=== PATIENT | male | born 1990 | race African-American/Black ===

== ENCOUNTER 2020-04-13 10:13 | Emergency (ER) | payer OTHER ==
[2020-04-13 10:19] VITALS: BMI 21.8
[2020-04-13] MEDS ORDERED: ONDANSETRON 4 MG/2 ML VIAL IVPUSH ONE (11:03)
[2020-04-13] MEDS ORDERED: SODIUM CHLORIDE 1,000 ML IV STA ×2 (11:03→12:57)
[2020-04-13] MEDS ORDERED: MAG HYDROX/AL HYDROX/SIMETH 30 ML UNIT-DOSE CUP PO ONE (11:04)
[2020-04-13] MEDS ORDERED: LIDOCAINE VISCOUS 2% ORAL/TOP 20 ML UNIT-DOSE CUP PO ONE (11:04)
--- NOTE | 2020-04-13 11:09 | PDOC ---
History of Present Illness - General Chief Complaint: Pain Stated Complaint: ABD PAIN Time Seen by Provider: 04/13/20 10:42 History Source: Patient Exam Limitations: No Limitations - History of Present Illness Travel History: No Initial Comments: 04/13/20 11:06 HISTORY OF PRESENT ILLNESS: 29-year-old male denies medical history presents emergency department for evaluation of upper abdominal burning and nausea status post heavy alcohol consumption yesterday in the evening. Patient reports awoke this morning with a burning sensation in the left upper abdomen and mild nausea. Patient reports the pain feels "like I really need to eat but I do not feel hungry." Patient reports consuming multiple bottles of hard liquor with 4 5 friends. No recent travel or sick contacts. PAST MEDICAL HISTORY: Denies past medical history SURGICAL HISTORY: Denies ALLERGIES: No known drug allergies REVIEW OF SYSTEMS General/Constitutional: Denies fever or chills. Denies weakness, weight change. HEENT: Denies change in vision. Denies ear pain or discharge. Denies sore throat. Cardiovascular: Denies chest pain or shortness of breath. Respiratory: Denies cough, wheezing, or hemoptysis. Gastrointestinal: See HPI Genitourinary: Denies dysuria, frequency, or change in urination. Musculoskeletal: Denies joint or muscle swelling or pain. Denies neck or back pa in. Skin and breasts: Denies rash or easy bruising. Neurologic: Denies headache, vertigo, loss of consciousness, or loss of sensation. Psychiatric: Denies depression or anxiety. Endocrine: Denies increased thirst. Denies abnormal weight change. Hematologic/Lymphatic: Denies anemia, easy bleeding, or history of blood clots. Allergic/Immunologic: Denies hives or skin allergy. Denies latex allergy. PHYSICAL EXAM General Appearance: Well-appearing, appropriately dressed. No apparent distress, no intoxication. Respiratory/Chest: Lungs CTAB. No shortness of breath, chest tenderness, respiratory distress, accessory muscle use. No crackles, rales, rhonchi, stridor, wheezing, dullness Cardiovascular: RRR. S1, S2. No JVD, murmur, bradycardia, tachycardia. Vascular Pulses: Dorsalis-Pedis (R): 2+, Dorsalis-Pedis (L): 2+ Gastrointestinal/Abdominal: Normal bowel sounds. Abdomen soft, non-distended. No tenderness or rebound tenderness. No organomegaly, pulsatile mass, guarding, hernia, hepatomegaly, splenomegaly. Lymphatic: No adenopathy, tenderness. Musculoskeletal/Extremities: Normal inspection. FROM of all extremities, normal capillary refill. Pelvis Stable. No CVA tenderness. No tenderness to extremities, pedal edema, swelling, erythema or deformity. Past History - Medical History Allergies/Adverse Reactions: Allergies Allergy/AdvReac Type Severity Reaction Status Date / Time No Known Allergies Allergy Verified 04/13/20 10:15 - Psycho-Social/Smoking History Smoking History: Never smoked - Substance Abuse Hx (Audit-C & DAST Scrn) How often the patient has a drink containing alcohol: 4 0r more times/wk Number of drinks the patient has on a typical day: 10 or more How often the patient has six or more drinks on one occasion: Daily or almost daily Score: In Men: 4 or > Positive; In Women: 3 or > Positive: 12 Screen Result (Pos requires Nsg. Audit-10AR): Positive In the last yr the pt used illegal drug/Rx for NonMed reason: No Score: Yes response is considered Positive: 0 Screen Result (Positive result requires Nsg. DAST-10): Negative *Physical Exam - Vital Signs Last Vital Signs Temp Pulse Resp BP Pulse Ox 98.5 F 73 16 132/69 97 04/13/20 10:15 04/13/20 10:15 04/13/20 10:15 04/13/20 10:15 04/13/20 10:15 ED Treatment Course - LABORATORY CBC & Chemistry Diagram: 04/13/20 11:35 04/13/20 11:35 Medical Decision Making - Medical Decision Making 04/13/20 11:08 A/P: 29-year-old male with abdominal pain after heavy alcohol consumption last night Physical exam is unremarkable Likely alcoholic gastritis given patient's story and normal exam but I will collect one set of labs. Maalox 30 cc orally now Lidocaine 20 cc orally now Zofran 4 mg IV push Normal saline 1 L IV bolus Reassess 04/13/20 12:58 Laboratory Tests 04/13/20 04/13/20 11:35 11:35 WBC 5.3 RBC 4.64 Hgb 14.9 Hct 43.8 MCV 94.3 MCH 32.1 MCHC 34.1 RDW 13.2 Plt Count 151 MPV 9.5 Absolute Neuts (auto) 3.5 Neutrophils % 66.4 Lymphocytes % 21.2 Monocytes % 10.5 H Eosinophils % 1.0 Basophils % 0.9 Nucleated RBC % 0 Sodium 143 Potassium 4.3 Chloride 107 Carbon Dioxide 28 Anion Gap 7 L BUN 8.8 Creatinine 1.4 H Est GFR (CKD-EPI)AfAm 78.13 Est GFR (CKD-EPI)NonAf 67.42 Random Glucose 99 Calcium 9.6 Total Bilirubin 0.9 AST 103 H ALT 79 H Alkaline Phosphatase 73 Total Protein 7.0 Albumin 3.3 L Lipase 425 H Patient with continued upper abdominal pain. Elevated lipase is likely due to h eavy alcohol consumption but will add another liter of IV fluids and get a gallbladder ultrasound to rule out gallstone etiology for elevated lipase. 04/13/20 16:23 Ultrasound is read by Dr. Martin: Mild fatty infiltration of the liver versus hepatocellular disease. Please correlate with liver enzymes. No gallstones are identified. Both kidneys appear unremarkable. Patient with only mildly elevated lipase is likely due to increased alcohol consumption yesterday. As he is not 3 times the upper limit of normal feel safe to discharge home with strict return precautions. Referral for GI is provided. I discussed the physical exam findings, ancillary test results and final diagnoses with the patient. I answered all of the patient's questions. The patient was satisfied with the care received and felt comfortable with the discharge plan and treatment plan. The patient will call their primary care physician within 24 hours to arrange follow-up and will return to the Emergency Department with any new, persistent or worsening symptoms. Portions of this note have been documented using voice recognition software. As a result, errors may occur in the monitor technician process. Effort has been made to correct all grammatical and monitor technician error, but some may have been missed which may produce sporadic inaccurate monitor technician or nonsensical phrases. Discharge - Discharge Information Problems reviewed: Yes Clinical Impression/Diagnosis: Elevated lipase, RAINA (acute kidney injury) Alcoholic gastritis Qualifiers: Chronicity: acute Gastritis bleeding: presence of bleeding unspecified Qualified Code(s): K29.20 - Alcoholic gastritis without bleeding Condition: Fair Disposition: HOME - Admission No - Follow up/Referral Referrals: Kyler Jensen MD [Staff Physician] - - Patient Discharge Instructions Additional Instructions: Your ultrasound was negative today. Avoid drinking alcohol. Eat a well-balanced diet. Keep well-hydrated with nonalcoholic fluids. You may get a referral for GI. Call to schedule an appointment if pain persis ts. Return to emergency department for any concerns. - Post Discharge Activity
[2020-04-13] MEDS ORDERED: ACETAMINOPHEN INJECTION 100 ML IVPB ONE (11:38)
[2020-04-13] MEDS ORDERED: ONDANSETRON 4 MG/2 ML VIAL ONE (11:43)
[2020-04-13] MEDS ORDERED: MAG HYDROX/AL HYDROX/SIMETH 30 ML UNIT-DOSE CUP ONE (11:43)
[2020-04-13 11:47] LABS: BASO % 0.9 % (0-2.0); HEMATOCRIT 43.8 % (35.4-49); HEMOGLOBIN 14.9 GM/dL (11.7-16.9); LYMPH % 21.2 % (8-40); MCH 32.1 pg (25.7-33.7); MCHC 34.1 g/dl (32.0-35.9); MEAN CELL VOLUME 94.3 fl (80-96); MEAN PLT VOLUME 9.5 fl (7.5-11.1); MONO % 10.5 % (3.8-10.2); NEUT % 66.4 % (42.8-82.8); PLATELET COUNT 151 K/MM3 (134-434); RBC 4.64 M/mm3 (4.00-5.60); RDW 13.2 % (11.9-15.9); WHITE BLOOD COUNT 5.3 K/mm3 (4.0-10.0)
[2020-04-13 12:13] LABS: ALBUMIN 3.3 g/dl (3.4-5.0); BILIRUBIN,TOTAL 0.9 mg/dL (0.2-1); BLOOD UREA NITROGEN 8.8 mg/dL (7-18); CALCIUM 9.6 mg/dL (8.5-10.1); CREATININE 1.4 mg/dL (0.55-1.3); POTASSIUM 4.3 mmol/L (3.5-5.1)
[2020-04-13 13:51] LABS: URINE APPEARANCE CLEAR; URINE BILIRUBIN NEGATIVE (NEGATIVE); URINE COLOR YELLOW; URINE GLUCOSE (UA) NEGATIVE (NEGATIVE); URINE KETONE NEGATIVE (NEGATIVE); URINE LEUK ESTERASE NEGATIVE (NEGATIVE); URINE NITRITE NEGATIVE (NEGATIVE); URINE PROTEIN NEGATIVE (NEGATIVE)
[2020-04-13 16:29] VITALS: BP 127/76; PULSE 58; TEMP 98.1
== END 2020-04-13 16:35 | disposition home or self-care (01) ==
LOC: JER 10:13
PROC: 3E033NZ Introduction of Analgesics, Hypnotics, Sedatives into Peripheral Vein, Percutaneous Approach (ICD-10-PCS; principal; 2020-04-13)
PROC: 3E0337Z Introduction of Electrolytic and Water Balance Substance into Peripheral Vein, Percutaneous Approach (ICD-10-PCS; 2020-04-13)
DX: N17.9 Acute kidney failure, unspecified (principal); K29.20 Alcoholic gastritis without bleeding; R74.8 Abnormal levels of other serum enzymes
CPT/HCPCS: 36415; 76705-TC; 80053; 81003; 83690; 85025; 99285-25

== ENCOUNTER 2022-09-10 03:12 | Emergency (ER) | payer OTHER ==
[2022-09-10 03:18] VITALS: RESP 17; TEMP 98.1; BMI 21.8
[2022-09-10] MEDS ORDERED: LORazepam 2 MG/ML SDV VIAL IVPB ONE (03:51)
[2022-09-10] MEDS ORDERED: SODIUM CHLORIDE 0.9% 500 ML INFUS.BAG IV ONE (03:52)
[2022-09-10] MEDS ORDERED: ACETAMINOPHEN 1000 MG/100 ML BAG IVPB ONE (03:53)
[2022-09-10] MEDS ORDERED: ACETAMINOPHEN INJECTION 100 ML IVPB ONE (04:04)
[2022-09-10 04:37] LABS: BASO % 0.4 % (0-2.0); EOS % 1.1 % (0-4.5); HEMATOCRIT 47.9 % (35.4-49); HEMOGLOBIN 15.9 GM/dL (11.7-16.9); LYMPH % 36.3 % (8-40); MCH 31.3 pg (25.7-33.7); MCHC 33.3 g/dl (32.0-35.9); MONO % 6.6 % (3.8-10.2); NEUT % 55.6 % (42.8-82.8); PLATELET COUNT 229 10^3/uL (134-434); RBC 5.09 M/mm3 (4.00-5.60); RDW 12.8 % (11.9-15.9); WHITE BLOOD COUNT 6.8 K/mm3 (4.0-10.0)
[2022-09-10 05:00] LABS: BLOOD UREA NITROGEN 10.9 mg/dL (7-18)
[2022-09-10 05:03] LABS: CREATININE 1.3 mg/dL (0.55-1.3)
[2022-09-10 05:05] LABS: BILIRUBIN,TOTAL 0.4 mg/dL (0.2-1); TOT PROT 6.4 g/dl (6.4-8.2)
[2022-09-10 06:50] LABS: URINE APPEARANCE CLEAR; URINE BILIRUBIN NEGATIVE (NEGATIVE); URINE COLOR YELLOW; URINE GLUCOSE (UA) NEGATIVE (NEGATIVE); URINE KETONE NEGATIVE (NEGATIVE); URINE LEUK ESTERASE NEGATIVE (NEGATIVE); URINE NITRITE NEGATIVE (NEGATIVE); URINE PROTEIN NEGATIVE (NEGATIVE); URINE UROBILINOGEN 0.2 mg/dL (0.2-1.0)
[2022-09-10 06:57] LABS: PHENCYCLIDINE,URINE NEGATIVE (NEGATIVE); URINE BARBITURATES NEGATIVE (NEGATIVE)
[2022-09-10 06:58] LABS: COCAINE, UR NEGATIVE (NEGATIVE); METHADONE, UR NEGATIVE (NEGATIVE); OPIATES, URI NEGATIVE (NEGATIVE)
[2022-09-10 07:03] LABS: URINE AMPHETAMINES POSITIVE (NEGATIVE); URINE BENZODIAZEPINES NEGATIVE (NEGATIVE)
[2022-09-10 11:11] VITALS: BP 116/75; PULSE 86
== END 2022-09-10 11:33 | disposition home or self-care (01) ==
LOC: JER 03:12
PROC: 3E0333Z Introduction of Anti-inflammatory into Peripheral Vein, Percutaneous Approach (ICD-10-PCS; principal; 2022-09-10)
PROC: 3E033NZ Introduction of Analgesics, Hypnotics, Sedatives into Peripheral Vein, Percutaneous Approach (ICD-10-PCS; 2022-09-10)
DX: G83.21 Monoplegia of upper limb affecting right dominant side (principal); F19.10 Other psychoactive substance abuse, uncomplicated
CPT/HCPCS: 36415; 70450-TC; 80053; 80307; 81003; 82550; 82553; 84484; 85025; 99284-25

== ENCOUNTER 2022-12-18 14:22 | Inpatient (IN) | payer OTHER ==
[2022-12-18 15:29] VITALS: BMI 23.5
[2022-12-18] MEDS ORDERED: POLYETHYLENE GLYCOL (HEALTHYLAX) 3350 17 GM PACKET PO PRN (17:25)
[2022-12-18] MEDS ORDERED: NICOTINE 10 MG CARTRIDGE (INHALER) IH PRN (17:25)
[2022-12-18] MEDS ORDERED: BENZOCAINE/MENTHOL (CHLORASEPTIC ) LOZENGE MM PRN (17:25)
[2022-12-18] MEDS ORDERED: ACETAMINOPHEN 325 MG TABLET (FP) PO PRN (17:25)
[2022-12-18] MEDS ORDERED: COLLOIDAL OATMEAL 1 BAR EACH TP PRN (17:25)
[2022-12-18] MEDS ORDERED: IBUPROFEN 600 MG TABLET (FP) PO PRN (17:25)
[2022-12-18] MEDS ORDERED: AMMONIUM LACTATE 12% LOTION 225 GM BOTTLE TP PRN (17:25)
[2022-12-18] MEDS ORDERED: BENZONATATE 200 MG CAPSULE PO PRN (17:25)
[2022-12-18] MEDS ORDERED: IBUPROFEN 400 MG TABLET (FP) PO PRN (17:25)
[2022-12-18] MEDS ORDERED: MAGNESIUM HYDROX 2400MG/30ML ORAL SUSPENSION 30 ML CUP PO PRN (17:25)
[2022-12-18] MEDS ORDERED: TUBERCULIN PPD 5 TU/0.1ML SYRINGE (IN PATIENT USE ONLY) ID ONE (17:25)
[2022-12-18] MEDS ORDERED: P-EPHED 60MG/TRIPROLIDI 2.5MG TABLET PO PRN (17:25)
[2022-12-18] MEDS ORDERED: MELATONIN 5 MG TABLETS PO PRN (17:25)
[2022-12-18] MEDS ORDERED: LOPERAMIDE HCL 2 MG CAPSULE PO PRN (17:25)
[2022-12-18] MEDS ORDERED: guaiFENesin 600 MG TABLET.ER (FP) PO PRN (17:25)
[2022-12-18] MEDS ORDERED: MAG HYDROX/AL HYDROX/SIMETH 30 ML UNIT-DOSE CUP PO PRN (17:25)
[2022-12-18] MEDS: THIAMINE HCL 100 MG TABLET (FP) PO SCH (21:26)
[2022-12-19] MEDS: PRENATAL VITAMINS W/ FOLIC ACID TABLET (FP) PO SCH (09:54)
[2022-12-19 12:00] LABS: HEMATOCRIT 41.7 % (35.4-49); HEMOGLOBIN 14.9 GM/dL (11.7-16.9); MCHC 35.7 g/dl (32.0-35.9); MEAN CELL VOLUME 95.4 fl (80-96); MEAN PLT VOLUME 9.8 fl (7.5-11.1); PLATELET COUNT 233 10^3/uL (134-434); RBC 4.37 M/mm3 (4.00-5.60); RDW 13.4 % (11.9-15.9); WHITE BLOOD COUNT 4.4 K/mm3 (4.0-10.0)
[2022-12-19 12:03] LABS: PH,URINE 6.5 (5.0-8.0); URINE APPEARANCE CLEAR; URINE BILIRUBIN NEGATIVE (NEGATIVE); URINE COLOR YELLOW; URINE GLUCOSE (UA) NEGATIVE (NEGATIVE); URINE KETONE 1+ (NEGATIVE); URINE LEUK ESTERASE NEGATIVE (NEGATIVE); URINE NITRITE NEGATIVE (NEGATIVE); URINE PROTEIN NEGATIVE (NEGATIVE)
[2022-12-19 12:07] LABS: ALBUMIN 2.3 g/dl (3.4-5.0); CALCIUM 9.3 mg/dL (8.5-10.1)
[2022-12-19 12:08] LABS: BLOOD UREA NITROGEN 7.1 mg/dL (7-18)
[2022-12-19 12:11] LABS: CREATININE 1.4 mg/dL (0.55-1.3)
[2022-12-19 12:12] LABS: BILIRUBIN,TOTAL 0.7 mg/dL (0.2-1); TOT PROT 5.6 g/dl (6.4-8.2)
[2022-12-19] MEDS: THIAMINE HCL 100 MG TABLET (FP) PO SCH (21:15)
[2022-12-20] MEDS: PRENATAL VITAMINS W/ FOLIC ACID TABLET (FP) PO SCH (09:57)
[2022-12-20] MEDS: THIAMINE HCL 100 MG TABLET (FP) PO SCH (21:30)
[2022-12-21] MEDS: PRENATAL VITAMINS W/ FOLIC ACID TABLET (FP) PO SCH (09:51)
[2022-12-21] MEDS: THIAMINE HCL 100 MG TABLET (FP) PO SCH (21:30)
[2022-12-22] MEDS: PRENATAL VITAMINS W/ FOLIC ACID TABLET (FP) PO SCH (10:03)
[2022-12-22] MEDS: THIAMINE HCL 100 MG TABLET (FP) PO SCH (21:27)
[2022-12-23] MEDS: PRENATAL VITAMINS W/ FOLIC ACID TABLET (FP) PO SCH (09:50)
[2022-12-23] MEDS: THIAMINE HCL 100 MG TABLET (FP) PO SCH (21:21)
[2022-12-24] MEDS: PRENATAL VITAMINS W/ FOLIC ACID TABLET (FP) PO SCH (09:50)
[2022-12-24] MEDS: THIAMINE HCL 100 MG TABLET (FP) PO SCH (21:35)
[2022-12-25] MEDS: PRENATAL VITAMINS W/ FOLIC ACID TABLET (FP) PO SCH (09:51)
[2022-12-25] MEDS: THIAMINE HCL 100 MG TABLET (FP) PO SCH (21:34)
[2022-12-26] MEDS: PRENATAL VITAMINS W/ FOLIC ACID TABLET (FP) PO SCH (09:45)
[2022-12-26] MEDS: THIAMINE HCL 100 MG TABLET (FP) PO SCH (21:27)
[2022-12-27] MEDS: PRENATAL VITAMINS W/ FOLIC ACID TABLET (FP) PO SCH (09:48)
[2022-12-27] MEDS: THIAMINE HCL 100 MG TABLET (FP) PO SCH (21:20)
[2022-12-28] MEDS: PRENATAL VITAMINS W/ FOLIC ACID TABLET (FP) PO SCH (10:06)
[2022-12-28] MEDS: THIAMINE HCL 100 MG TABLET (FP) PO SCH (21:21)
[2022-12-29] MEDS: PRENATAL VITAMINS W/ FOLIC ACID TABLET (FP) PO SCH (10:36)
[2022-12-29] MEDS: THIAMINE HCL 100 MG TABLET (FP) PO SCH (21:30)
[2022-12-30 07:26] VITALS: RESP 18
[2022-12-30] MEDS: PRENATAL VITAMINS W/ FOLIC ACID TABLET (FP) PO SCH (10:02)
[2022-12-30] MEDS: THIAMINE HCL 100 MG TABLET (FP) PO SCH (21:10)
[2022-12-31 07:14] VITALS: BP 132/77; PULSE 76; TEMP 97.5
[2022-12-31] MEDS: PRENATAL VITAMINS W/ FOLIC ACID TABLET (FP) PO SCH (10:11)
== END 2022-12-31 10:10 | disposition home or self-care (01) | DRG 772 ==
LOC: YASAS 14:22 → Y5N 19:08
PROVIDERS: ADMIT Allergy & Immunology; ATTEND Family Medicine
PROC: HZ42ZZZ Group Counseling for Substance Abuse Treatment, Cognitive-Behavioral (ICD-10-PCS; principal; 2022-12-18)
DX: F11.20 Opioid dependence, uncomplicated (principal); F10.20 Alcohol dependence, uncomplicated; Z72.0 Tobacco use; Z87.19 Personal history of other diseases of the digestive system; Z28.310 Unvaccinated for COVID-19
CPT/HCPCS: 36415; 80053; 81003; 85027; 86780; 87811; 90853; C9803-CS; U0003; U0005

== ENCOUNTER 2023-06-23 00:53 | Emergency (ER) | payer OTHER ==
[2023-06-23 01:05] VITALS: BP 147/92; PULSE 85; RESP 18; TEMP 97.7; BMI 21.9
[2023-06-23] MEDS ORDERED: LIDOCAINE 5% TOPICAL PATCH TP ONE (02:07)
[2023-06-23] MEDS ORDERED: ACETAMINOPHEN 500 MG TABLET (FP) PO ONE (02:07)
[2023-06-23] MEDS ORDERED: KETOROLAC TROMETHAMINE 30 MG/1 ML VIAL IM ONE (02:07)
[2023-06-23] MEDS ORDERED: KETOROLAC TROMETHAMINE 30 MG/1 ML VIAL ONE (02:12)
[2023-06-23] MEDS ORDERED: LIDOCAINE 4% PATCH TP ONE (02:12)
[2023-06-23] MEDS ORDERED: METHOCARBAMOL 500 MG TABLET PO ONE (02:13)
[2023-06-23] MEDS ORDERED: IBUPROFEN 600 MG TABLET (FP) PO ONE (02:13)
[2023-06-23] MEDS ORDERED: METHOCARBAMOL 500 MG TABLET ONE (02:21)
[2023-06-23] MEDS ORDERED: LIDOCAINE PATCH REMOVAL MC ONE (14:00)
== END 2023-06-23 03:51 | disposition home or self-care (01) ==
LOC: JER 00:53
PROC: 3E0233Z Introduction of Anti-inflammatory into Muscle, Percutaneous Approach (ICD-10-PCS; principal; 2023-06-23)
DX: M54.50 Low back pain, unspecified (principal); R20.2 Paresthesia of skin; X50.0XXA Overexertion from strenuous movement or load, initial encounter; W17.89XA Other fall from one level to another, initial encounter
CPT/HCPCS: 72100-TC-FY; 99284-25